=== PATIENT | female | born 1965 | race Two or more races ===

== ENCOUNTER 2024-10-09 09:52 | Outpatient (AMB) | payer MEDICARE, MEDICAID, SELFPAY ==
--- NOTE | 2024-10-09 10:14 | PD.ORTHCLVIS ---
Vital signs 10/09/24 10:15 Height 1.55 m Height Method Stated Weight 53.524 kg BMI 22.2 BP 110/74 Blood Pressure Location Right Upper Arm Respiration 16 Pulse 94 Temp 96.8 F Temp Source Temporal Artery Scan Pulse Oximetry (%) 99 Oxygen Delivery Method Room Air Med/Allergies Allergies & Medications Allergies macrobid Allergy (Uncoded 10/09/24 10:28) Abdominal Pain Medication Reconciliation atorvastatin 40 mg tablet 40 mg PO QDAY 06/21/23 [History Confirmed 10/09/24] estradiol 1 mg tablet 0.5 mg PO QDAY 06/21/23 [History Confirmed 10/09/24] linaclotide 290 mcg capsule (Linzess) 290 mcg PO QDAY 06/21/23 [History Confirmed 10/09/24] metoclopramide HCl 5 mg tablet 5 mg PO BID 06/21/23 [History Confirmed 10/09/24] montelukast 10 mg tablet 10 mg PO QDAY 06/21/23 [History Confirmed 10/09/24] omeprazole 40 mg capsule,delayed release 40 mg PO QDAY 06/21/23 [History Confirmed 10/09/24] tamsulosin 0.4 mg capsule 0.4 mg PO QHS 06/21/23 [History Confirmed 10/09/24] alprazolam 1 mg tablet (Xanax) 1 mg PO QDAY 05/15/24 [History Confirmed 10/09/24] cyclobenzaprine 10 mg tablet 10 mg PO HS 05/15/24 [History Confirmed 10/09/24] valacyclovir 1 gram tablet 1,000 mg PO QDAY 05/15/24 [History Confirmed 10/09/24] acetaminophen 500 mg tablet (Acetaminophen Extra Strength) 1,000 mg (2 x 500 mg) PO Q6H PRN pain #90 tabs 05/20/24 [Rx Confirmed 10/09/24] aspirin 81 mg tablet,delayed release 81 mg PO BID #60 tabs 05/20/24 [Rx Confirmed 10/09/24] doxycycline hyclate 100 mg tablet 100 mg PO BID #14 tabs 05/20/24 [Rx Confirmed 10/09/24] sennosides 8.6 mg-docusate sodium 50 mg tablet (Senna-S) 1 tab-cap PO QDAY #30 tabs 05/20/24 [Rx Confirmed 10/09/24] oxycodone 5 mg tablet 5 mg PO Q6H PRN pain #28 tabs 05/26/24 [Rx Confirmed 10/09/24] cyclobenzaprine 5 mg tablet 5 mg PO QHS PRN muscle spasm #60 tabs 06/02/24 [Rx Confirmed 10/09/24] meloxicam 7.5 mg tablet 7.5 mg PO QDAY #30 tabs 06/02/24 [Rx Confirmed 10/09/24] pregabalin 75 mg capsule 75 mg PO bid #45 caps 06/02/24 [Rx Confirmed 10/09/24] gabapentin 300 mg capsule 300 mg PO QHS #60 caps 06/26/24 [Rx Confirmed 10/09/24] oxycodone 5 mg tablet 5 mg PO Q6H PRN pain #28 tabs 06/26/24 [Rx Confirmed 10/09/24] meloxicam 7.5 mg tablet 7.5 mg PO QDAY #45 tabs 07/14/24 [Rx Confirmed 10/09/24] pregabalin 75 mg capsule 75 mg PO BID #45 caps 07/14/24 [Rx Confirmed 10/09/24] Exam Exam Patient is in no acute distress and is cooperative with the examination today. Breathing is nonlabored. Patient has a normal mood and affect. Bilateral extremities were evaluated and demonstrates sensation intact to light touch. Palpable pedal pulses are present. No significant edema is present. Bilateral hips were examined. The patient has no pain with log roll of the hips. Internal rotation to 30 degrees and external rotation to 30 degrees is painless. Negative FADIR. Right knee was examined today. The right knee is in reasonable alignment. Range of motion from 0-120 degrees. Knee is stable to varus and valgus as well as AP translation with <5mm. Patient has a negative McMurrays. There is no pain with patellofemoral compression and no crepitus noted. The knee is nontender to palpation. Left knee incision is clean dry and intact. Knee range of motion is 0 to 105 degrees X-rays from [facility] imaging demonstrates a total knee replacement good alignment position. I do not see any evidence of loosening Assessment and Plan Problem List (1) Bilateral knee pain: Status: Acute Plan: Patient is 12-week status post left total knee replacement. The knee incision looks great. She is very happy with her progress. We will see her in approximately 4 months for routine follow-up (2) Status post total left knee replacement: Status: Acute Office Procedures GNS Level of Care Nursing/Assessment Patient Status: Established Patient Nursing Assessment/Reassesment: Medication Reconciliation, Update PMH in EMR and Vital Signs Coordination of Care: Complex Care and Chronic Disease 1-5, Education Complex Pt/Fam, Consent,records obtained, informed consent, 1 Ins Authorization, Results/Orders obtained and Staff clarify orders Established Patient Charge Established Patient Point Assignment: 110 Established Patient Point Charge: EP Level 3 (80-115) MA Intake Visit Data Collection New Patient or Established: Established Patient (seen at [facility] within 3 years) Reason for Visit:: LT KNEE PAIN/SWELLING Seen by Clinical Staff ONLY (RN/MA): No Credit Director Required: No PCP or OBGYN visit in last 3 months: Yes Hx Now: No Do You Feel Safe at Home: Yes Authorities Contacted: N/A Questionairres Past Medical History Past Medical History Have you ever been diagnosed with any of the following: Neurological Problems Seizures: No Cardiology Problems Hypercholesterolemia: Yes Congestive Heart Failure: No Respiratory Problems Chronic Obstructive Pulmonary Disease (COPD): No Asthma: Yes Smoking: No Smoking Exposure: No Stomache/Intestinal Problems Hepatitis: No Genital/Urinary Problems Renal Disease: No Reproductive Problems Previous Pregnancies: Yes Musculoskeletal Problems Arthritis: Yes Head,Eye,Nose,Throat Problems Cataracts: Yes (has surgery) Blind: Yes (legally blind) Endocrine Problems Diabetes Mellitus Type 1: No Diabetes Mellitus Type 2: No Psychologic Problems Anxiety: Yes (Panic attacks when stressed) Other Problems Hospitalization: Yes (surgery, low sodium,) Shingles: No Blood Transfusions: No Anesthesia Reactions: No Chicken Pox: Yes Measles: Yes Mumps: Yes Cancer: No Surgical History Hysterectomy: Yes (BSO) Subjective Visit Visit for: follow up visit and knee Immunization / Flu Flu Vaccine in the Last 12 Months: Yes Flu Vaccine Exclusion Criteria: Already Received History of Present Illness Chief complaint: LT KNEE PAIN/SWELLING Date of 1st surgery (if applicable): 05/20/2024 Patient is doing well status post left total knee replacement 4 months ago. She is doing well and has minimal pain. Will see her approximately 4 months. She is walking without any assistive device Pain Pain level (0-10): 8 Pain duration: WITH MOVEMENT Pain location: inside (medial), outside (lateral), anterior and posterior Pain quality: sharp, aching, shocking and electric Pain timing: increases with activity Associated signs & symptoms: numbness and stiffness Ambulatory data Ambulatory device: none Treatments Number of previous injections: 12 Improvement with previous injections: Yes Number of Physical Therapy sessions: 4 Improvement with PT: Yes Improvement with NSAIDS: no Review of Systems Review of Systems: All systems negative unless otherwise noted in HPI.
[2024-10-09 10:15] VITALS: BP 110/74; PULSE 94; RESP 16; TEMP 36; O2SAT 99; BMI 22.2
== END 2024-10-09 10:39 | disposition home or self-care (01) ==
LOC: HODSRG 09:52
PROVIDERS: PCP Specialist; Referring Provider Specialist; Supervising Provider Orthopaedic Surgery Adult Reconstructive Orthopaedic Surgery; Visit Provider Orthopaedic Surgery Adult Reconstructive Orthopaedic Surgery
DX: M25.562 Pain in left knee (principal); M25.561 Pain in right knee; Z96.652 Presence of left artificial knee joint; E78.00 Pure hypercholesterolemia, unspecified
CPT/HCPCS: 99213; G0463

== ENCOUNTER → 2024-10-09 | Outpatient (CLI) | payer MEDICARE, MEDICAID, SELFPAY ==
--- NOTE | 2024-10-09 | XR_ITS ---
Examination: Lumbar spine, 5 views Technique: Lumbar spine AP, lateral, coned lateral lower lumbar spine, bilateral obliques 5 views Exam date and time: October 09, 2024 1234 hours INDICATIONS: Low back pain beginning 6 months ago COMPARISON: August 11, 2019 FINDINGS: Moderate osteopenia No lumbar fracture Mild to moderate disc narrowing L4-L5, L5-S1 No spondylolisthesis IMPRESSION: Mild to moderate degenerative disc disease L4-L5, L5-S1
--- NOTE | 2024-10-09 | XR_ITS ---
Examination: Thoracic spine 3 views Technique one AP lateral coned lateral upper dorsal spine 3 views Exam date and time: October 09, 2024 1239 hours FINDINGS: Satisfactory alignment thoracic vertebral bodies No thoracic fracture Moderate osteopenia Mild to moderate diffuse thoracic degenerative disc disease IMPRESSION: Mild to moderate diffuse thoracic degenerative disc disease
== END | disposition home or self-care (01) ==
LOC: CDIM 10:52
PROVIDERS: PCP Specialist; Referring Provider Specialist; Visit Provider Specialist
DX: M51.34 Other intervertebral disc degeneration, thoracic region (principal); M51.369 Other intervertebral disc degeneration, lumbar region without mention of lumbar back pain or lower extremity pain; M51.379 Other intervertebral disc degeneration, lumbosacral region without mention of lumbar back pain or lower extremity pain
CPT/HCPCS: 72072; 72110

== ENCOUNTER → 2024-11-17 | Outpatient (CLI) | payer MEDICARE, MEDICAID, SELFPAY ==
--- NOTE | 2024-11-17 16:00 | XR_ITS ---
Examination: MRI lumbar spine without contrast Date and time of exam: November 09, 2024 at 1651 hours INDICATIONS: Intermittent lower back pain 16 months COMPARISON: August 11, 2019 Technique: Multiple MRI axial and sagittal sections lumbar spine. Sagittal T2-weighted images, TR 3500, TE 118 T1 weighted transverse sections, TR 688 T8.5, T2-weighted sagittal sections T1 weighted sagittal sections TR 621, TE 30 T2 axial sections, TR 4, 190, TE 84. Findings: Adequate alignment lumbar vertebral bodies Transitional L5 vertebral body No lumbar fracture Disc desiccation L2-L3, L3-L4, L4-L5 Mild disc narrowing L4-L5 L5-S1 no disc protrusion L4-L5 3 mm central lumbar disc bulge with small left foraminal annular disc tear More cephalad levels unremarkable IMPRESSION: L4-L5 3 mm central lumbar disc bulge with small left foraminal annular disc tear
== END | disposition home or self-care (01) ==
LOC: SMRI 15:47
PROVIDERS: PCP Specialist; Referring Provider Specialist; Visit Provider Specialist
DX: M51.86 Other intervertebral disc disorders, lumbar region (principal)
CPT/HCPCS: 72148

== ENCOUNTER → 2024-11-23 | Outpatient (CLI) | payer MEDICARE, MEDICAID, SELFPAY ==
--- NOTE | 2024-11-23 14:45 | XR_ITS ---
Examination: MRI thoracic spine without contrast. Date and time of exam: November 23, 2024 1526 hours Comparison September 25, 2019 INDICATIONS: Mid back pain back spasms numbness in both hands beginning 18 months ago Technique: Multiple sagittal and axial images of the thoracic spine have been obtained. T1 weighted localizer, sagittal T2 weighted images, TR 30-50, TE 148, T1 weighted sagittal images, TR 650, TE 14, T2-weighted transverse images, TR 6770, TE 142 Findings: Adequate alignment thoracic vertebral bodies on the lateral view Mild to moderate diffuse thoracic degenerative disc disease T6-T7 thoracic disc protrusion again noted, 3 mm but no impingement upon the thoracic cord No localized enlargement thoracic cord No thoracic syrinx cavity Incidental note significant degenerative disc disease C4-C5, C5-C6, C6-C7 Impression: Mild to moderate diffuse thoracic degenerative disc disease T6-T7 3 mm central disc protrusion
== END | disposition home or self-care (01) ==
PROVIDERS: PCP Specialist; Referring Provider Specialist; Visit Provider Specialist
DX: M51.34 Other intervertebral disc degeneration, thoracic region (principal); M51.24 Other intervertebral disc displacement, thoracic region
CPT/HCPCS: 72146

== ENCOUNTER 2025-03-11 15:00 | Outpatient (AMB) | payer MEDICARE, MEDICAID, SELFPAY ==
--- NOTE | 2025-03-11 15:11 | PD.ORTHCLVIS ---
Vital signs 03/11/25 15:12 Height 1.55 m Height Method Stated Weight 53.524 kg Weight Measurement Method Standing Scale BMI 22.2 BP 105/64 Blood Pressure Source Automatic Cuff Blood Pressure Location Right Upper Arm Position Sitting Respiration 18 Pulse 85 Pulse Source Monitor Temp 98.3 F Temp Source Temporal Artery Scan Pulse Oximetry (%) 98 Oxygen Delivery Method Room Air Med/Allergies Allergies & Medications Allergies macrobid Allergy (Uncoded 03/11/25 15:12) Abdominal Pain Medication Reconciliation atorvastatin 40 mg tablet 40 mg PO QDAY 06/21/23 [History Confirmed 03/11/25] estradiol 1 mg tablet 0.5 mg PO QDAY 06/21/23 [History Confirmed 03/11/25] linaclotide 290 mcg capsule (Linzess) 290 mcg PO QDAY 06/21/23 [History Confirmed 03/11/25] metoclopramide HCl 5 mg tablet 5 mg PO BID 06/21/23 [History Confirmed 03/11/25] montelukast 10 mg tablet 10 mg PO QDAY 06/21/23 [History Confirmed 03/11/25] omeprazole 40 mg capsule,delayed release 40 mg PO QDAY 06/21/23 [History Confirmed 03/11/25] tamsulosin 0.4 mg capsule 0.4 mg PO QHS 06/21/23 [History Confirmed 03/11/25] alprazolam 1 mg tablet (Xanax) 1 mg PO QDAY 05/15/24 [History Confirmed 03/11/25] cyclobenzaprine 10 mg tablet 10 mg PO HS 05/15/24 [History Confirmed 03/11/25] valacyclovir 1 gram tablet 1,000 mg PO QDAY 05/15/24 [History Confirmed 03/11/25] acetaminophen 500 mg tablet (Acetaminophen Extra Strength) 1,000 mg (2 x 500 mg) PO Q6H PRN pain #90 tabs 05/20/24 [Rx Confirmed 03/11/25] aspirin 81 mg tablet,delayed release 81 mg PO BID #60 tabs 05/20/24 [Rx Confirmed 03/11/25] doxycycline hyclate 100 mg tablet 100 mg PO BID #14 tabs 05/20/24 [Rx Confirmed 03/11/25] sennosides 8.6 mg-docusate sodium 50 mg tablet (Senna-S) 1 tab-cap PO QDAY #30 tabs 05/20/24 [Rx Confirmed 03/11/25] oxycodone 5 mg tablet 5 mg PO Q6H PRN pain #28 tabs 05/26/24 [Rx Confirmed 03/11/25] cyclobenzaprine 5 mg tablet 5 mg PO QHS PRN muscle spasm #60 tabs 06/02/24 [Rx Confirmed 03/11/25] meloxicam 7.5 mg tablet 7.5 mg PO QDAY #30 tabs 06/02/24 [Rx Confirmed 03/11/25] pregabalin 75 mg capsule 75 mg PO bid #45 caps 06/02/24 [Rx Confirmed 03/11/25] gabapentin 300 mg capsule 300 mg PO QHS #60 caps 06/26/24 [Rx Confirmed 03/11/25] oxycodone 5 mg tablet 5 mg PO Q6H PRN pain #28 tabs 06/26/24 [Rx Confirmed 03/11/25] meloxicam 7.5 mg tablet 7.5 mg PO QDAY #45 tabs 07/14/24 [Rx Confirmed 03/11/25] pregabalin 75 mg capsule 75 mg PO BID #45 caps 07/14/24 [Rx Confirmed 03/11/25] Exam Exam Patient is in no acute distress and is cooperative with the examination today. Breathing is nonlabored. Patient has a normal mood and affect. Bilateral extremities were evaluated and demonstrates sensation intact to light touch. Palpable pedal pulses are present. No significant edema is present. Bilateral hips were examined. The patient has no pain with log roll of the hips. Internal rotation to 30 degrees and external rotation to 30 degrees is painless. Negative FADIR. Right knee was examined today. The right knee is in reasonable alignment. Range of motion from 0-120 degrees. Knee is stable to varus and valgus as well as AP translation with <5mm. Patient has a negative McMurrays. There is no pain with patellofemoral compression and no crepitus noted. The knee is nontender to palpation. Left knee incision is clean dry and intact. Knee range of motion is 0 to 105 degrees X-rays from [facility] imaging demonstrates a total knee replacement good alignment position. I do not see any evidence of loosening Assessment and Plan Problem List (1) Bilateral knee pain: Status: Acute Plan: Patient [id number] status post left total knee replacement. The knee incision looks great. She is very happy with her progress. We will see her in approximately 6 months for routine follow-up (2) Status post total left knee replacement: Status: Acute Office Procedures GNS Level of Care Nursing/Assessment Patient Status: Established Patient Nursing Assessment/Reassesment: Medication Reconciliation, Update PMH in EMR and Vital Signs Coordination of Care: Complex Care and Chronic Disease 1-5, Education Complex Pt/Fam, Consent,records obtained, informed consent, Results/Orders obtained and Staff clarify orders Established Patient Charge Established Patient Point Assignment: 95 Established Patient Point Charge: EP Level 3 (80-115) MA Intake Visit Data Collection New Patient or Established: Established Patient (seen at [facility] within 3 years) Reason for Visit:: FOLLOW UP Seen by Clinical Staff ONLY (RN/MA): No Verbal consent obtained for Telemed visit?: No Tare Man Required: No PCP or OBGYN visit in last 3 months: Yes Hx Now: No Do You Feel Safe at Home: Yes Authorities Contacted: N/A Questionairres Past Medical History Past Medical History Have you ever been diagnosed with any of the following: Neurological Problems Seizures: No Cardiology Problems Hypercholesterolemia: Yes Congestive Heart Failure: No Respiratory Problems Chronic Obstructive Pulmonary Disease (COPD): No Asthma: Yes Smoking: No Smoking Exposure: No Stomache/Intestinal Problems Hepatitis: No Genital/Urinary Problems Renal Disease: No Reproductive Problems Previous Pregnancies: Yes Musculoskeletal Problems Arthritis: Yes Head,Eye,Nose,Throat Problems Cataracts: Yes (has surgery) Blind: Yes (legally blind) Endocrine Problems Diabetes Mellitus Type 1: No Diabetes Mellitus Type 2: No Psychologic Problems Anxiety: Yes (Panic attacks when stressed) Other Problems Hospitalization: Yes (surgery, low sodium,) Shingles: No Blood Transfusions: No Anesthesia Reactions: No Chicken Pox: Yes Measles: Yes Mumps: Yes Cancer: No Surgical History Hysterectomy: Yes (BSO) Subjective Visit Visit for: follow up visit and knee Immunization / Flu Flu Vaccine in the Last 12 Months: No Flu Vaccine Exclusion Criteria: No Exclusion Criteria and Already Received History of Present Illness Chief complaint: FOLLOW UP Date of 1st surgery (if applicable): 05/20/2024 Patient is doing well status post left total knee replacement 10 months ago. She is doing well and has minimal pain. Will see her in approximately 6 months. She is walking without any assistive device and is very happy Personal History Occupation: DISBALED Red flag PMH: BMI Pain Pain level (0-10): 4 Pain duration: ALL DAY Pain location: inside (medial), outside (lateral), anterior and posterior Pain quality: sharp, dull, aching, shocking and electric Pain timing: increases with activity Associated signs & symptoms: numbness, stiffness and none Ambulatory data Ambulatory device: none Treatments Number of previous injections: 12 Improvement with previous injections: No Number of Physical Therapy sessions: 4 Improvement with PT: No Improvement with NSAIDS: no Review of Systems Review of Systems: All systems negative unless otherwise noted in HPI.
[2025-03-11 15:12] VITALS: BP 105/64; PULSE 85; RESP 18; TEMP 36.8; O2SAT 98; BMI 22.2
== END 2025-03-11 15:22 | disposition home or self-care (01) ==
LOC: HODSRG 15:00
PROVIDERS: PCP Internal Medicine Cardiovascular Disease; Referring Provider Internal Medicine Cardiovascular Disease; Supervising Provider Orthopaedic Surgery Adult Reconstructive Orthopaedic Surgery; Visit Provider Orthopaedic Surgery Adult Reconstructive Orthopaedic Surgery
DX: M25.562 Pain in left knee (principal); M25.561 Pain in right knee; Z96.652 Presence of left artificial knee joint; E78.00 Pure hypercholesterolemia, unspecified
CPT/HCPCS: 99213; G0463

== ENCOUNTER → 2025-06-16 | Outpatient (CLI) | payer MEDICARE, MEDICAID, SELFPAY ==
--- NOTE | 2025-06-16 15:45 | XR_ITS ---
Examination: Abdomen AP single view Technique: AP portable supine abdomen, single view Exam date and time: June 16, 2025, 1546 hours INDICATIONS: Abdominal pain and nausea beginning 3 weeks ago. FINDINGS: Moderate stool throughout the colon. No obstruction. No free air. Surgical clips upper right abdomen. No abnormal calcific densities. IMPRESSION: Moderate stool throughout the colon.
[2025-06-16 17:29] LABS: Basophils # (Auto) 0.1 Thou/mm3 (0.0-0.2); Basophils % (Auto) 1 % (0-2.5); Eosinophils # (Auto) 0.1 Thou/mm3 (0.0-0.5); Eosinophils % (Auto) 1 % (0-10); Hematocrit 32.8 % (36.0-46.0); Hemoglobin 11.2 g/dL (12.0-16.0); Immature Granulocytes Auto 0.03 Thou/mm3 (0.00-0.00); Lymphocytes # (Auto) 2.4 Thou/mm3 (1.0-4.8); Lymphocytes % (Auto) 24 % (10-50); Mean Corpuscular HGB Conc 34.1 g/dl (31.0-37.0); Mean Corpuscular Hemoglobin 34.0 pg (25.0-35.0); Mean Corpuscular Volume 100 fL (80-100); Monocytes # (Auto) 0.6 Thou/mm3 (0.0-0.8); Monocytes % (Auto) 6 % (0-12); Neutrophils # (Auto) 6.7 Thou/mm3 (1.8-7.7); Neutrophils % (Auto) 68 % (37-80); Nucleated Red Blood Cell # 0.00 Thou/mm3 (0.00-0.00); Nucleated Red Blood Cell % 0 /100 WBC (0); Platelet Count 261 Thou/mm3 (140-440); RDW Standard Deviation 46.9 fL (36.4-46.3); Red Blood Count 3.29 Miln/mm3 (4.00-5.20); White Blood Count 9.9 Thou/mm3 (3.6-11.0)
[2025-06-16 17:44] LABS: Alanine Aminotransferase 14 U/L (10-49); Albumin, Serum 4.5 gm/dL (3.4-4.8); Albumin/Globulin Ratio 2.1 (1.2-2.2); Alkaline Phosphatase 101 U/L (46-116); Amylase 53 U/L (30-118); Anion Gap 8 (7-16); Aspartate Amino Transferase 23 U/L (0-34); BUN/Creatinine Ratio 9 Ratio (12-20); Bilirubin,Total 0.7 mg/dL (0.3-1.2); Blood Urea Nitrogen 7 mg/dL (9-23); Calcium 9.9 mg/dL (8.3-10.6); Calcium (Corrected) 9.9 mg/dL (8.5-10.1); Carbon Dioxide 28.8 mMol/L (20.0-31.0); Chloride 93 mMol/L (98-107); Creatinine (Component) 0.8 mg/dL (0.6-1.3); Globulin 2.1 gm/dL (2.3-3.5); Glucose 88 mg/dL (74-106); Osmolality,Calculated 257 (275-295); Potassium 4.7 mMol/L (3.4-5.1); Sodium 130 mMol/L (136-145); Total Protein 6.6 gm/dL (5.7-8.2); eGFR > 60 See Note
== END | disposition home or self-care (01) ==
LOC: CDIM 15:43 → COPL 15:57
PROVIDERS: PCP Specialist; Referring Provider Specialist; Visit Provider Radiology Diagnostic Radiology
DX: K59.00 Constipation, unspecified (principal); R14.0 Abdominal distension (gaseous); R10.32 Left lower quadrant pain
CPT/HCPCS: 36415; 74018; 80053; 82150; 85025; 87086

== ENCOUNTER 2025-08-23 10:20 | Day surgery (SDC) | payer MEDICARE, MEDICAID, SELFPAY ==
--- NOTE | 2025-08-20 06:00 | EKG_ITS ---
[facility] Test Date: 2025-08-20 Pat Name: AUDRA LUTZ Department: Room: - Gender: Female Optometric Assistant: [place] : [id number] Requested By: Blaine Keller Order Number: [id number] Reading MD: Blaine Keller Measurements Intervals [place] Rate: 72 P: 57 MN: 140 QRS: 35 QRSD: 82 T: 47 QT: 352 QTc: 388 Interpretive Statements SINUS RHYTHM Compared to ECG 04/18/2018 14:08:32 No significant changes /store/[id number]
[2025-08-20 12:24] LABS: Alanine Aminotransferase 24 U/L (10-49); Albumin, Serum 5.0 gm/dL (3.4-4.8); Albumin/Globulin Ratio 2.4 (1.2-2.2); Alkaline Phosphatase 97 U/L (46-116); Anion Gap 11 (7-16); Aspartate Amino Transferase 20 U/L (0-34); BUN/Creatinine Ratio 12 Ratio (12-20); Bilirubin,Total 0.6 mg/dL (0.3-1.2); Blood Urea Nitrogen 11 mg/dL (9-23); Calcium 10.0 mg/dL (8.3-10.6); Calcium (Corrected) 10.0 mg/dL (8.5-10.1); Carbon Dioxide 25.0 mMol/L (20.0-31.0); Chloride 103 mMol/L (98-107); Creatinine (Component) 0.9 mg/dL (0.6-1.3); Globulin 2.1 gm/dL (2.3-3.5); Glucose 108 mg/dL (74-106); Osmolality,Calculated 277 (275-295); Potassium 4.0 mMol/L (3.4-5.1); Sodium 139 mMol/L (136-145); Total Protein 7.1 gm/dL (5.7-8.2); eGFR > 60 See Note
[2025-08-20 14:24] VITALS: BMI 22.6
[2025-08-23 10:42] VITALS: BP 136/98; PULSE 83; RESP 83; TEMP 36.6; O2SAT 97; BMI 22.4
[2025-08-23 12:00] VITALS: BP 152/83; PULSE 82; RESP 7; O2SAT 100
[2025-08-23] MEDS: RINGERS LACTATED 1000 ML 1,000 ML 20 ML IV (12:11)
[2025-08-23 12:50] VITALS: BP 125/68; PULSE 85; RESP 16; TEMP 37; O2SAT 100
[2025-08-23 13:00] VITALS: BP 128/73; PULSE 79; RESP 14; O2SAT 100
[2025-08-23 13:10] VITALS: BP 139/81; PULSE 81; RESP 16; O2SAT 99
[2025-08-23 13:20] VITALS: BP 134/79; PULSE 68; RESP 16; O2SAT 98
== END 2025-08-23 13:40 | disposition home or self-care (01) ==
PROVIDERS: Anesthesiology; PCP Specialist; Referring Provider Specialist; Visit Provider Specialist
PROC: 0DBE8ZX Excision of Large Intestine, Via Natural or Artificial Opening Endoscopic, Diagnostic (ICD-10-PCS; CPT 45380; principal; 2025-08-23 10:45)
PROC: (CPT 43239; 2025-08-23 10:45)
DX: D12.5 Benign neoplasm of sigmoid colon (principal); K64.1 Second degree hemorrhoids; K57.30 Diverticulosis of large intestine without perforation or abscess without bleeding; Z01.810 Encounter for preprocedural cardiovascular examination; D50.0 Iron deficiency anemia secondary to blood loss (chronic); D17.79 Benign lipomatous neoplasm of other sites; K29.50 Unspecified chronic gastritis without bleeding; K20.90 Esophagitis, unspecified without bleeding
CPT/HCPCS: 45380; 43239; 36415; 80053; 93005; A4649; J7120

== ENCOUNTER 2025-09-10 10:46 | Outpatient (AMB) | payer MEDICARE, MEDICAID, SELFPAY ==
--- NOTE | 2025-09-10 11:23 | ORTHONT_ITS ---
Vital signs 09/10/25 11:38 Height 1.55 m Height Method Stated Weight 55.934 kg Weight Measurement Method Standing Scale BMI 23.3 BP 111/75 Blood Pressure Source Automatic Cuff Blood Pressure Location Left Upper Arm Position Sitting Respiration 19 Pulse 110 H Pulse Source Monitor Temp 97.9 F Temp Source Temporal Artery Scan Pulse Oximetry (%) 97 Oxygen Delivery Method Room Air Med/Allergies Allergies & Medications Allergies No Known Allergies Allergy (Verified 09/10/25 11:38) Medication Reconciliation atorvastatin 40 mg tablet 40 mg PO QDAY 06/21/23 [History Confirmed 09/10/25] estradiol 1 mg tablet 0.5 mg PO QDAY 06/21/23 [History Confirmed 09/10/25] linaclotide 290 mcg capsule (Linzess) 290 mcg PO QDAY 06/21/23 [History Confirmed 09/10/25] metoclopramide HCl 5 mg tablet 5 mg PO BID 06/21/23 [History Confirmed 09/10/25] montelukast 10 mg tablet 10 mg PO QDAY 06/21/23 [History Confirmed 09/10/25] omeprazole 40 mg capsule,delayed release 40 mg PO QDAY 06/21/23 [History Confi rmed 09/10/25] tamsulosin 0.4 mg capsule 0.4 mg PO QHS 06/21/23 [History Confirmed 09/10/25] alprazolam 1 mg tablet (Xanax) 1 mg PO QDAY 05/15/24 [History Confirmed 09/10/25] Held on 08/23/25. Instructions: Resume on 08/24/25. cyclobenzaprine 10 mg tablet 10 mg PO HS 05/15/24 [History Confirmed 09/10/25] Held on 08/23/25. Instructions: Resume on 08/24/25. aspirin 81 mg tablet,delayed release 81 mg PO BID #60 tabs 05/20/24 [Rx Confirmed 09/10/25] Exam Exam Patient is in no acute distress and is cooperative with the examination today. Breathing is nonlabored. Patient has a normal mood and affect. Bilateral extremities were evaluated and demonstrates sensation intact to light touch. Palpable pedal pulses are present. No significant edema is present. Bilateral hips were examined. The patient has no pain with log roll of the hips. Internal rotation to 30 degrees and external rotation to 30 degrees is painless. Negative FADIR. Right knee was examined today. The right knee is in reasonable alignment. Range of motion from 0-120 degrees. Knee is stable to varus and valgus as well as AP translation with <5mm. Patient has a negative McMurrays. There is no pain with patellofemoral compression and no crepitus noted. The knee is nontender to palpation. Left knee incision is clean dry and intact. Knee range of motion is 0 to 105 degrees X-rays from [facility] imaging demonstrates a total knee replacement good alignment position. I do not see any evidence of loosening Assessment and Plan Problem List (1) Bilateral knee pain: Status: Acute Plan: Patient is 14 monthsk status post left total knee replacement. The knee incision looks great. She is very happy with her progress. She has some patella tendinitis. She continues to be very active and is trying to lose weight. We discussed anti- inflammatories and rest. (2) Status post total left knee replacement: Status: Acute Office Procedures GNS Level of Care Nursing/Assessment Patient Status: Established Patient Nursing Assessment/Reassesment: Medication Reconciliation, Update PMH in EMR and Vital Signs Coordination of Care: Complex Care and Chronic Disease 1-5, Education Complex Pt/Fam, Consent,records obtained, informed consent, Results/Orders obtained and Staff clarify orders Established Patient Charge Established Patient Point Assignment: 95 Established Patient Point Charge: EP Level 3 (80-115) MA Intake Visit Data Collection New Patient or Established: Established Patient (seen at [facility] within 3 years) Reason for Visit:: FOLLOW UP Seen by Clinical Staff ONLY (RN/MA): No PCP or OBGYN visit in last 3 months: Yes Hx Now: No Do You Feel Safe at Home: Yes Authorities Contacted: N/A Questionairres Past Medical History Past Medical History Have you ever been diagnosed with any of the following: Neurological Problems Seizures: No Migraine: Yes (KATZ) Cardiology Problems Hypercholesterolemia: Yes Congestive Heart Failure: No Respiratory Problems Chronic Obstructive Pulmonary Disease (COPD): No Asthma: Yes Smoking: No Smoking Exposure: No Stomache/Intestinal Problems Hepatitis: No Irritable Bowel: Yes Genital/Urinary Problems Renal Disease: No Reproductive Problems Previous Pregnancies: Yes Musculoskeletal Problems Arthritis: Yes Head,Eye,Nose,Throat Problems Cataracts: Yes (had surgery) Blind: Yes (legally blind) Endocrine Problems Diabetes Mellitus Type 1: No Diabetes Mellitus Type 2: No Blood Problems Anemia: Yes Psychologic Problems Anxiety: Yes (Panic attacks when stressed) Other Problems Hospitalization: No Shingles: No Falls: No Blood Transfusions: No Anesthesia Reactions: No Chicken Pox: Yes Measles: Yes Mumps: Yes Cancer: No Surgical History Hysterectomy: Yes (BSO) Subjective Visit Visit for: follow up visit and knee Immunization / Flu Flu Vaccine in the Last 12 Months: No Flu Vaccine Exclusion Criteria: No Exclusion Criteria and Already Received History of Present Illness Chief complaint: FOLLOW UP Date of 1st surgery (if applicable): 05/20/2024 Patient is doing well status post left total knee replacement 14 months ago. She is doing well and has minimal pain. She has pain only on the anterior aspect of her patella Personal History Occupation: DISBALED Red flag PMH: BMI Pain Pain level (0-10): 4 Pain duration: ALL DAY Pain location: inside (medial), outside (lateral), anterior and posterior Pain quality: sharp, dull, aching, shocking and electric Pain timing: increases with activity Associated signs & symptoms: numbness, stiffness and none Ambulatory data Ambulatory device: none Treatments Number of previous injections: 12 Improvement with previous injections: No Number of Physical Therapy sessions: 4 Improvement with PT: No Improvement with NSAIDS: no Review of Systems Review of Systems: All systems negative unless otherwise noted in HPI.
[2025-09-10 11:38] VITALS: BP 111/75; PULSE 110; RESP 19; TEMP 36.6; O2SAT 97; BMI 23.3
== END 2025-09-10 11:30 | disposition home or self-care (01) ==
LOC: HODSRG 10:46
PROVIDERS: PCP Internal Medicine Cardiovascular Disease; Referring Provider Internal Medicine Cardiovascular Disease; Supervising Provider Orthopaedic Surgery Adult Reconstructive Orthopaedic Surgery; Visit Provider Orthopaedic Surgery Adult Reconstructive Orthopaedic Surgery
DX: Z47.1 Aftercare following joint replacement surgery (principal); Z96.652 Presence of left artificial knee joint; M25.562 Pain in left knee; M25.561 Pain in right knee; M76.50 Patellar tendinitis, unspecified knee
CPT/HCPCS: 99213; G0463